=== PATIENT | female | born 1980 | race Hispanic/Latino ===

== ENCOUNTER 2016-11-19 04:44 | Inpatient (IN) | payer BC, OTHER ==
[2016-11-19 05:21] VITALS: BMI 34.9
[2016-11-19] MEDS ORDERED: Promethazine HCl 25 MG/ML VIAL IM PRN ×3 (05:32→22:20)
[2016-11-19] MEDS ORDERED: HYDROcodone/Acetaminophen 5/325 mg Tablet PO PRN ×2 (05:32)
[2016-11-19] MEDS ORDERED: Ibuprofen 800 MG TAB PO PRN (05:32)
[2016-11-19] MEDS ORDERED: Ondansetron HCl/PF 4 MG/2 ML Vial IVP PRN ×4 (05:32→22:21)
[2016-11-19] MEDS ORDERED: Lidocaine 1% (PF) 30 ML VIAL SC PRN (05:32)
[2016-11-19] MEDS ORDERED: LR / Pitocin 40 units/1000 ml 1,000 ML IV PRN ×2 (05:32→11:55)
[2016-11-19] MEDS ORDERED: Fentanyl 4 mcg/Marc 0.1% Cadd 100 ML ONE (05:38)
[2016-11-19] MEDS: Lactated Ringer's 1,000 ML IV SCH ×3 (05:50→17:48)
[2016-11-19 05:56] LABS: Hematocrit 42.9 % (36.0-47.0); Mean Platelet Volume 9.6 fL (7.4-10.4); Red Blood Cell (RBC) Count 4.57 mill/uL (4.20-5.40); White Blood Cell (WBC) Count 6.8 thou/uL (4.8-10.8)
[2016-11-19] MEDS ORDERED: Acetaminophen 325 MG TAB PO PRN (06:58)
[2016-11-19] MEDS ORDERED: Eucerin (Mineral Oil/Petrolatum,White) 30 gm Jar TOP PRN (06:58)
[2016-11-19] MEDS ORDERED: diphenhydrAMINE HCl 50 MG/ML 1 ML VIAL IVP PRN ×2 (06:58→22:20)
[2016-11-19] MEDS ORDERED: Naloxone HCl 0.4 mg/ml Vial IVP PRN ×4 (06:58→22:20)
[2016-11-19] MEDS ORDERED: ePHEDrine/0.9% NaCl/PF SYRINGE 50 mg/10 ml SLOW IVP PRN (06:58)
[2016-11-19] MEDS ORDERED: Lactated Ringer's 500 ML IV PRN (06:58)
[2016-11-19] MEDS ORDERED: Communication Order-Pharmacy FS SCH ×2 (07:00→22:30)
--- NOTE | 2016-11-19 07:19 | HP ---
DATE OF ADMISSION: 11/19/2016 TIME: 05:37, time of first evaluation 05:20. LOCATION: Labor and Delivery. This is a patient of Dr. Clinton Byrnes with Dr. Anthony Peter covering. REASON FOR EVALUATION: Spontaneous rupture of membranes at term. HISTORY OF PRESENT ILLNESS: In brief, this is a 36-year-old 3, para 2 with a history of C-s ection with her first delivery. She had a successful vaginal after after her second delivery 12 years ago. She desires to have another trial of labor after . According to t he patient, Dr. Clinton Byrnes has cleared this patient for . She understands the risks and benef its of a trial of labor after and is aware that a repeat is an option. She is a t 38 weeks and 4 days with a complaint of spontaneous rupture of membranes at 04:00 a.m. today. She denies any other complications. REVIEW OF SYSTEMS: Complete review of systems was checked, and is otherwise negative unless specifi ed in the HPI. ALLERGIES: None. PAST SURGICAL HISTORY: Significant for her with her first child. PHYSICAL EXAMINATION: VITAL SIGNS: She is afebrile and normotensive. Clinically, she is in no acute distress, but she palm s contraction discomfort. Estimated weight is approximately 7 pounds. On cervical exam, she is 5 cm dilated, completely effaced, -1 station. She is cephalic in presentation. On external monitors, heart tones are in the 140s to 150s and they are category 1. Cont ractions are regular on the tocodynamometer about every 2-3 minutes. heart tones were reassur ing. ASSESSMENT: This is a multigravida at term with spontaneous rupture of membranes in labor, 5 cm. S he has been cleared for a vaginal after by Dr. Clinton Byrnes. She is GBS negative. Informed consent taken for a repeat trial of labor after . Risks to include uterine ruptur e, repeat , bleeding, and compromise reviewed. Informed consent taken. PLAN: 1. Admit to Labor and Delivery. 2. Anesthesia consult for ventricular back. 3. Patient cleared to be back by Dr. Byrnes. 4. Dr. Peter, who is covering, is aware of the patient's arrival. 5. GBS negative. 6. Close monitoring.
[2016-11-19] MEDS ORDERED: Lidocaine 2% PF 10 ML AMP (For Epidural Use) ONE (11:11)
[2016-11-19] MEDS ORDERED: Bupivacaine PF 0.5% 30 ML VIAL ONE (11:11)
[2016-11-19] MEDS ORDERED: LR 500 ML/Oxytocin 10 units 500 ML ONE (11:34)
[2016-11-19] MEDS ORDERED: LR 500 ML/Oxytocin 10 units 500 ML IV SCH (12:00)
[2016-11-19] MEDS: Fentanyl 4mcg/Marcaine 0.1% Cassette 100 ML EPIDURAL SCH ×2 (13:02→17:48)
[2016-11-19] MEDS ORDERED: Bicitra 30 ML UDCUP ONE (19:37)
[2016-11-19] MEDS ORDERED: PHENYLEPHRINE-NS 100 MCG/ML 10 ML SYRINGE ONE (19:54)
[2016-11-19] MEDS ORDERED: Oxytocin 10 UNITS/ML VIAL ONE (19:54)
[2016-11-19] MEDS ORDERED: Ketorolac Tromethamine 30 MG/ML VIAL ONE (19:54)
[2016-11-19] MEDS ORDERED: ePHEDrine/0.9% NaCl/PF SYRINGE 50 mg/10 ml ONE (19:54)
[2016-11-19] MEDS ORDERED: Dexamethasone 4 mg/ml Vial ONE (19:54)
[2016-11-19] MEDS ORDERED: Ondansetron HCl/PF 4 MG/2 ML Vial ONE (19:54)
[2016-11-19] MEDS ORDERED: Bupivacaine/Epinephrine 0.5% 10 ML VIAL ONE (20:33)
[2016-11-19] MEDS ORDERED: Midazolam HCl 2 mg/2 ml Vial ONE (20:38)
[2016-11-19] MEDS ORDERED: Fentanyl 100 MCG/2 ML VIAL ONE (20:52)
[2016-11-19 21:02] LABS: CO2 Tension (PaCO2) 60.6 mmHg (44.0-56.0)
[2016-11-19] MEDS ORDERED: Ketorolac Tromethamine 30 MG/ML VIAL IVP PRN (22:20)
[2016-11-19] MEDS ORDERED: Hydrocerin (Eucerin) Cream 120 gm Jar TOP PRN (22:20)
[2016-11-19] MEDS ORDERED: Naloxone HCl 0.4 mg/ml Vial IV PRN (22:20)
[2016-11-19] MEDS ORDERED: Promethazine HCl 25 MG SUPP PR PRN (22:20)
[2016-11-19] MEDS ORDERED: HYDROmorphone 2 MG/ML VIAL SLOW IVP PRN (22:21)
[2016-11-19] MEDS ORDERED: Meperidine HCl/PF 25 MG/ML VIAL SLOW IVP PRN (22:21)
[2016-11-19] MEDS ORDERED: Ketorolac Tromethamine 30 MG/ML VIAL IVP SCH (22:30)
--- NOTE | 2016-11-20 01:43 | OP ---
DATE OF PROCEDURE: 11/19/2016 PREOPERATIVE DIAGNOSES: 1. Arrest of descent. 2. History of prior x1. 3. Failed trial of labor after . POSTOPERATIVE DIAGNOSES: 1. Arrest of descent. 2. History of prior x1. 3. Failed trial of labor after . PROCEDURE: Repeat lower transverse section. SURGEON: Andrei Song M.D. CELL ASSEMBLY PINNER: Sulema Chairez M.D. ANESTHESIA: Epidural. COMPLICATIONS: None. COUNTS: Correct. ESTIMATED BLOOD LOSS: 700 mL. FINDINGS: Male infant delivered in vertex presentation on 11/19/2016 at 8:36 p.m. Apgars are 4, 5, 7, and 8, weight is 3905 grams. Blood gas is 7.15. Bladder was adhesed high on the uterus and there were omental adhesions to the anterior abdominal wall. The urine was bloody from laboring and noted to have cleared by after the delivery of the fetus. SPECIMENS: Placenta to pathology. PROCEDURE IN DETAIL: Ms. Lauryn Sutherland presented to labor and delivery for ruptured and desire trial of labor after at 38 weeks and 4 days. The patient had a history of a successful 12 years previous. Course of her labor was slow and progressed to complete; however, the patient never was able to descent past 0 to +1 station. The patient was noted to have adequate contractions, and after several hours, no descent, decision was made to proceed with . The patient informed that her initial was for also arrest of descent and baby was 6 pounds and 11 ounces and this baby was estimated at 8 pounds and 10 ounces. The patient was taken to the operating room where her epidural was noted to be sufficient. She was prepared and draped in normal sterile fashion. Once epidural was confirmed adequate, a Pfannenstiel skin incision was then made through the existing scar and the incision was carried down to the fascia. The fascia was incised and the fascial incision was extended laterally with Sampson scissors. The rectus muscles were then divided down the vertical midline and for entry into the peritoneal cavity. The patient was noted to have significant scarring at this time. The rectus muscles were dissected off the overlying fascia anteriorly and superiorly. Entry into the peritoneal cavity was done through bluntly and sharply and the bladder was noted to be high on the lower uterine segment. Once sufficient room was made, an Gunnar O retractor was then placed. A bladder flap was created and a transverse incision was made on the lower uterine segment. The head was then delivered into the sterile field and the cord was clamped and cut and the was handed off to the waiting attendants. Placenta was extracted and the uterus was cleared of all clot and debris. Inspection of the uterus revealed an extension of the hysterotomy on the patient's left side by 2-3 cm. The extension in uterus, hysterotomy was closed with #1 Monocryl in a running locked fashion. Hemostasis was confirmed on inspection and irrigation. At this point, the Gunnar O retractor was then removed and the fascia was closed with 0 Vicryl in a running fashion. Subcu fat was closed with 3-0 plain gut and the skin was closed with 4-0 Monocryl. Procedure at this point was completed and the patient was taken to recovery room in stable condition. KRISTA
[2016-11-20] MEDS ORDERED: Bisacodyl 10 MG SUPP PR PRN (02:04)
[2016-11-20] MEDS ORDERED: Ondansetron HCl/PF 4 MG/2 ML Vial IVP PRN (02:04)
[2016-11-20] MEDS ORDERED: Lanolin Ointment 7 GM TUBE TOP PRN (02:04)
[2016-11-20] MEDS ORDERED: Adacel (T-DAP) 0.5 ML VIAL IM ONE (02:04)
[2016-11-20] MEDS ORDERED: HYDROcodone/Acetaminophen 5/325 mg Tablet PO PRN ×2 (02:04)
[2016-11-20 05:46] LABS: Hematocrit 36.8 % (36.0-47.0); Mean Platelet Volume 9.7 fL (7.4-10.4); Red Blood Cell (RBC) Count 3.87 mill/uL (4.20-5.40); White Blood Cell (WBC) Count 15.6 thou/uL (4.8-10.8)
[2016-11-20] MEDS ORDERED: Ibuprofen 800 MG TAB PO SCH (06:00)
[2016-11-20] MEDS: Prenatal Vitamin 1 TAB PO SCH (09:42)
[2016-11-20] MEDS: Docusate (Surfak) 240 MG CAP PO SCH ×2 (09:42→21:12)
[2016-11-20] MEDS: Simethicone Chewable 80 MG TAB PO PRN (09:43)
[2016-11-20] MEDS: HYDROcodone/Acetaminophen 5/325 mg Tablet PO PRN (09:45)
[2016-11-20] MEDS: Ferrous Sulfate 325 MG TAB PO SCH ×2 (14:03→17:47)
[2016-11-20] MEDS: Ibuprofen 800 MG TAB PO SCH (21:12)
[2016-11-21] MEDS: HYDROcodone/Acetaminophen 5/325 mg Tablet PO PRN ×5 (03:01→22:08)
[2016-11-21] MEDS ORDERED: Ibuprofen 800 MG TAB PO SCH (06:00)
[2016-11-21] MEDS: Simethicone Chewable 80 MG TAB PO PRN (06:08)
[2016-11-21] MEDS: Ibuprofen 800 MG TAB PO SCH ×4 (06:08→22:09)
[2016-11-21] MEDS: Docusate (Surfak) 240 MG CAP PO SCH ×2 (08:13→22:10)
[2016-11-21] MEDS: Prenatal Vitamin 1 TAB PO SCH (08:13)
[2016-11-21] MEDS: Ferrous Sulfate 325 MG TAB PO SCH ×2 (08:17→17:11)
[2016-11-21 20:33] VITALS: BP 117/64; TEMP 97.9
[2016-11-22] MEDS: Ibuprofen 800 MG TAB PO SCH (06:20)
[2016-11-22] MEDS: HYDROcodone/Acetaminophen 5/325 mg Tablet PO PRN ×2 (07:41→11:55)
[2016-11-22] MEDS: Simethicone Chewable 80 MG TAB PO PRN (09:22)
[2016-11-22] MEDS: Docusate (Surfak) 240 MG CAP PO SCH (09:22)
[2016-11-22] MEDS: Prenatal Vitamin 1 TAB PO SCH (09:22)
--- NOTE | 2016-11-22 10:52 | DIS ---
DISCHARGE DIAGNOSES: 1. Term . 2. Failure to descend. 3. Prior . DISCHARGE MEDICATIONS: vitamins and iron daily, Holabird 5/325 q.6 h. p.r.n. pain. BRIEF HISTORY: This is a 36-year-old [place] female with a prior section and . She presented in labor with ruptured membranes. She was followed by Dr. Peter and Dr. Webb. Her course was uncomplicated except for polyhydramnios; however, resolved towards the end of . HOSPITAL COURSE: The patient progressed in labor; however, had failure to descend at a completely d ilated cervix. The patient then underwent a repeat section by Dr. Song. The procedure went without complication. Mother did very well postoperatively and now she is ready for discharge. She is and doing well. Minimal lochia. H\T\H 12 and 36.
[2016-11-22] MEDS ORDERED: Measles/Mumps/Rubella 10 MCG/0.5 ML VIAL SC ONE (11:45)
[2016-11-22] MEDS: Ferrous Sulfate 325 MG TAB PO SCH (11:50)
== END 2016-11-22 12:30 | disposition home or self-care (01) | DRG 766 ==
LOC: L&D/OP 04:44 → L&D 05:29 → 3SW 11-20 00:45
PROVIDERS: ADMIT Obstetrics & Gynecology; ATTEND Family Medicine
PROC: 10D00Z1 Extraction of Products of Conception, Low, Open Approach (ICD-10-PCS; principal; 2016-11-19)
DX: O32.4XX0 Maternal care for high head at term, not applicable or unspecified (principal); N85.8 Other specified noninflammatory disorders of uterus; Z37.0 Single live birth; Z3A.38 38 weeks gestation of pregnancy; O34.211 Maternal care for low transverse scar from previous cesarean delivery
CPT/HCPCS: 36415; 82805; 85027; 86780; 87340; 87389; 88307; J1100; J1200; J1885; J2001; J2250; J2274; J2405; J2590; J3010; J3490; J7120; S0020

== ENCOUNTER 2023-11-03 15:22 | Outpatient (CLI) | payer OTHER | END 2023-11-03 15:23 | disposition home or self-care (01) | LOC: BICMAMMO 15:22 | PROVIDERS: ATTEND Nurse Practitioner Family | DX: Z12.31 Encounter for screening mammogram for malignant neoplasm of breast (principal) | CPT/HCPCS: 77063; 77067 ==

== ENCOUNTER 2023-12-26 07:46 | Outpatient (CLI) | payer OTHER | END 2023-12-26 07:47 | disposition home or self-care (01) | LOC: BICULT 07:46 | PROVIDERS: ATTEND Nurse Practitioner Family | DX: R74.8 Abnormal levels of other serum enzymes (principal); K76.89 Other specified diseases of liver | CPT/HCPCS: 76705 ==

== ENCOUNTER 2024-11-07 07:55 | Outpatient (CLI) | payer OTHER | END 2024-11-07 07:56 | disposition home or self-care (01) | LOC: BICMAMMO 07:55 | PROVIDERS: ATTEND Nurse Practitioner Family | DX: Z12.31 Encounter for screening mammogram for malignant neoplasm of breast (principal) | CPT/HCPCS: 77063; 77067 ==